=== PATIENT | male | born 1970 | race Caucasian/White ===

== ENCOUNTER 2016-11-03 11:08 | Observation (INO) | payer OTHER ==
--- NOTE | ~2016-11-03 | OP ---
Record Of Operation [facility] [address] [place]. [address] NAME: DARSHAN CARUSO : 66 STATUS : ADM Sharita PAT#: [id number] AGE: 46 ADM/REG DATE : 11/03/16 MR#: [id number] REPORT SERV DATE: 11/04/16 DICTATED BY: JOSEPH MAN JR. DATE: 11/04/16 REPORT STATUS : Draft TRANSCRIBED BY: MODL DATE: 11/04/16 DATE OF PROCEDURE: 11/04/2016 SURGEON: Joseph Man M.D. PREOPERATIVE DIAGNOSIS: Right ureteral stone, 8 mm in size. POSTOPERATIVE DIAGNOSIS: Right ureteral stone, 8 mm in size. PROCEDURE PERFORMED: Cystoscopy, right retrograde pyelogram, dilation of right ureteral orifice, right ureteroscopy with laser ablation of right ureteral stone, and double-J stent placement. COMPLICATIONS: None. CONSULTATIONS: None. ANESTHESIA: General with a laryngeal mask airway. SPECIMENS: Right stone fragments. DRAINS: A 6 x 26 cm double-J stent. ESTIMATED BLOOD LOSS: None. INDICATION: Mr. Caruso is a 46-year-old gentleman, who comes today for treatment of a right ureteral stone causing intractable pain. He was admitted last night for pain control. PROCEDURE IN DETAIL: After the patient was identified and proper informed consent was obtained, he was taken to the operating room. General anesthesia was performed without complication using a laryngeal mask airway. He was then prepped and draped in normal sterile fashion. Cystoscopic examination of the urethra and bladder were performed. The penile bulbous and prostatic urethra were found to be normal. The bladder mucosa was also normal, without diverticula, stone, or tumor. The right ureteral orifice was cannulated with a 5-Arabic open-ended catheter. Retrograde pyelogram revealed normal course and caliber of the ureter up to the level of the UPJ. The stone was visualized, there was a 7 to 8 mm calcification at the UPJ with mild hydronephrosis above the stone. I did manipulate a wire into the renal pelvis with some difficulties and then advanced a ureteral access sheath 12 x 14-Arabic over the wire into the ureter, and placing a flexible ureteroscope through the sheath, I was able to visualize the stone which was now in the renal pelvis. I manipulated the stone into a mid pole calyx. I fragmented the stone using a 200 micron Holmium laser fiber. Some of the pieces were removed for analysis. The double-J stent was deployed 6 x 26 cm in length. The rest of the stone fragments were too small to grasp within the NGage basket. The patient was awakened in the operating room transferred to the postanesthesia care in stable condition. I will see him back on Monday for stent removal with the string and I will see him in the office in six weeks for stone analysis and dietary Record Of Operation [address] [address] NAME: DARSHAN CARUSO : 66 STATUS : ADM Sharita PAT#: [id number] AGE: 46 ADM/REG DATE : 11/03/16 MR#: [id number] REPORT SERV DATE: 11/04/16 DICTATED BY: JOSEPH MAN JR. DATE: 11/04/16 REPORT STATUS : Draft TRANSCRIBED BY: DOMINIQUE DATE: 11/04/16 counseling. FRIEDMAN/DOMINIQUE Joseph Man Jr., M.D. / [id number] CC: Joseph Man Jr., M.D.
[2016-11-03 12:46] LABS: BASOPHILS 0.4 %; BASOPHILS ABSOLUTE 0.02 10/3/uL (0.0-0.16); HEMATOCRIT 38.3 % (40.0-51.0); HEMOGLOBIN 13.4 g/dL (13.6-17.8); LYMPHOCYTES 27.6 %; LYMPHOCYTES ABSOLUTE 1.39 10/3/uL (0.67-4.30); MEAN CORPUSCULAR HEMOGLOB 29.3 pg (26.0-34.0); MEAN CORPUSCULAR VOLUME 83.6 fL (80-100); MEAN PLATELET VOLUME 10.4 fL (9.2-13.0); MONOCYTES 8.1 %; MONOCYTES ABSOLUTE 0.41 10/3/uL (0.21-1.20); NEUTROPHILS 61.9 %; NEUTROPHILS ABSOLUTE 3.12 10/3/uL (2.02-8.40); PLATELET COUNT 234 10/3/uL (150-400); RBC DISTRIBUTION WIDTH 13.9 % (12.0-16.0); RED CELL COUNT 4.58 10/6/uL (4.7-6.1)
[2016-11-03 12:47] LABS: MANUAL DIFF NO %
[2016-11-03 12:57] LABS: BUN (BLOOD UREA NITROGEN) 16 MG/DL (6-23); CALCIUM, SERUM 8.3 MG/DL (8.5-10.4); CHLORIDE, SERUM 108 MMOL/L (96-112); CO2 (CARBON DIOXIDE) 26 MMOL/L (24-34); CREATININE 0.88 MG/DL (0.70-1.30); GFR AFRICAN AMERICAN 118 ML/MIN (>=60); GFR NON AFRICAN AMERICAN 102 ML/MIN (>=60); GLUCOSE, SERUM 94 MG/DL (60-99); POTASSIUM, SERUM 3.5 MMOL/L (3.5-5.3); SODIUM, SERUM 144 MMOL/L (135-148)
[2016-11-03] MEDS ORDERED: XANAX1 MG PO (13:30)
[2016-11-03] MEDS ORDERED: NORCO1 TAB PO (13:30)
[2016-11-03] MEDS ORDERED: PCET PO (13:30)
[2016-11-03] MEDS ORDERED: NEXIUM40 PO (13:31)
[2016-11-03] MEDS ORDERED: PR25 PO (13:31)
[2016-11-10 17:06] LABS: STONE COMPOSITION TWO DNR (())
== END 2016-11-04 16:07 | disposition home or self-care (01) ==
LOC: 4SO 11:08
PROVIDERS: Urology
PROC: 0T768DZ Dilation of Right Ureter with Intraluminal Device, Via Natural or Artificial Opening Endoscopic (ICD-10-PCS; 2016-11-04)
PROC: 0TF68ZZ Fragmentation in Right Ureter, Via Natural or Artificial Opening Endoscopic (ICD-10-PCS; principal; 2016-11-04 10:00)
DX: N20.1 Calculus of ureter (principal); Z23 Encounter for immunization
CPT/HCPCS: 74420; 80048; 82365; 85025; 90686; 93005; 96372; 96374; 96375; 96376; A9270-GY; C1758; C1769; C1894; C2617; G0008; G0378; J2250; J2270; J2370; J2405; J2710; J3010; Q9967

== ENCOUNTER 2017-03-30 19:33 | Emergency (ER) | payer OTHER ==
[~2017-03-30 19:33] MED LIST: NEXIUM40 PO; NORCO1 TAB PO; PCET PO; PR25 PO; XANAX1 MG PO
[2017-03-30 20:55] LABS: BASOPHILS 0.2 %; BASOPHILS ABSOLUTE 0.01 10/3/uL (0.0-0.16); EOSINOPHILS 0.7 %; EOSINOPHILS ABSOLUTE 0.04 10/3/uL (0.0-0.53); ER CBC TAT 0 Hrs 07 Mins; HEMATOCRIT 39.2 % (40.0-51.0); HEMOGLOBIN 13.7 g/dL (13.6-17.8); IMMATURE GRANULOCYTES 0.2 %; IMMATURE GRANULOCYTES ABSOLUTE 0.01 10/3/uL (0.0-0.11); LYMPHOCYTES 23.7 %; LYMPHOCYTES ABSOLUTE 1.32 10/3/uL (0.67-4.30); MANUAL DIFF NO %; MEAN CORPUS HGB CONC 34.9 g/dL (32.0-36.0); MEAN CORPUSCULAR HEMOGLOB 29.5 pg (26.0-34.0); MEAN CORPUSCULAR VOLUME 84.3 fL (80-100); MEAN PLATELET VOLUME 10.2 fL (9.2-13.0); MONOCYTES 8.6 %; MONOCYTES ABSOLUTE 0.48 10/3/uL (0.21-1.20); NEUTROPHILS 66.6 %; NEUTROPHILS ABSOLUTE 3.71 10/3/uL (2.02-8.40); PLATELET COUNT 221 10/3/uL (150-400); RBC DISTRIBUTION WIDTH 13.4 % (12.0-16.0); RED CELL COUNT 4.65 10/6/uL (4.7-6.1); WHITE BLOOD CELLS 5.6 10/3/uL (4.5-10.5)
[2017-03-30 21:03] LABS: PARTIAL THROMBO TIME 26.9 SEC (22.5-37.2); PROTIME (NOT ORD) 12.6 SEC (12.0-14.5)
[2017-03-30 21:10] LABS: CALCIUM, SERUM 8.6 MG/DL (8.5-10.4); CHEST PAIN PROFILE TAT 0 Hrs 22 Mins; CHLORIDE, SERUM 106 MMOL/L (96-112); CO2 (CARBON DIOXIDE) 29 MMOL/L (24-34); CREATININE 0.67 MG/DL (0.70-1.30); GFR AFRICAN AMERICAN 132 ML/MIN (>=60); GFR NON AFRICAN AMERICAN 114 ML/MIN (>=60); GLUCOSE, SERUM 92 MG/DL (60-99); POTASSIUM, SERUM 3.2 MMOL/L (3.5-5.3); SODIUM, SERUM 142 MMOL/L (135-148); TROPONIN I <0.02 NG/ML (<0.05)
[2017-03-30 21:11] LABS: BUN (BLOOD UREA NITROGEN) 11 MG/DL (6-23)
== END 2017-03-31 00:26 | disposition home or self-care (01) ==
LOC: ER 19:33
PROVIDERS: Emergency Medicine
DX: S22.32XA Fracture of one rib, left side, initial encounter for closed fracture (principal); S20.212A Contusion of left front wall of thorax, initial encounter; F41.9 Anxiety disorder, unspecified; Z85.47 Personal history of malignant neoplasm of testis; Z91.041 Radiographic dye allergy status; Z79.899 Other long term (current) drug therapy; X58.XXXA Exposure to other specified factors, initial encounter
CPT/HCPCS: 71101; 80048; 83735; 84484; 85025; 85610; 85730; 93005; 99285; A9270-GY